=== PATIENT | male | born 1960 | race Native Hawaiian/Other Pacific Islander ===

== ENCOUNTER 2019-03-17 08:36 | Outpatient (CLI) | payer OTHER | END 2019-03-17 19:09 | disposition home or self-care (01) | LOC: MRI 08:36 | DX: M54.6 Pain in thoracic spine (principal) ==

== ENCOUNTER 2019-06-19 11:13 | Outpatient (CLI) | payer OTHER | END 2019-06-19 22:06 | disposition home or self-care (01) | LOC: MRI 11:13 | DX: M50.10 Cervical disc disorder with radiculopathy, unspecified cervical region (principal) ==

== ENCOUNTER 2019-08-25 10:15 | Day surgery (SDC) | payer OTHER ==
[~2019-08-25] VITALS: Ht 30.5 cm; Wt 0.5 kg
== END 2019-08-25 12:10 | disposition home or self-care (01) ==
LOC: OR 10:15
PROC: 3E0R33Z Introduction of Anti-inflammatory into Spinal Canal, Percutaneous Approach (ICD-10-PCS; principal; 2019-08-25)
PROC: B01BYZZ Fluoroscopy of Spinal Cord using Other Contrast (ICD-10-PCS; 2019-08-25)
PROC: 3E0U33Z Introduction of Anti-inflammatory into Joints, Percutaneous Approach (ICD-10-PCS; 2019-08-25)
DX: M50.123 Cervical disc disorder at C6-C7 level with radiculopathy (principal); M25.561 Pain in right knee
CPT/HCPCS: J1020; J2001

== ENCOUNTER 2020-06-07 08:14 | Day surgery (SDC) | payer OTHER ==
[~2020-06-07] VITALS: Ht 30.5 cm; Wt 0.5 kg
== END 2020-06-07 09:29 | disposition home or self-care (01) ==
LOC: OR 08:14
PROC: 3E0R3BZ Introduction of Anesthetic Agent into Spinal Canal, Percutaneous Approach (ICD-10-PCS; principal; 2020-06-07)
PROC: 3E0R33Z Introduction of Anti-inflammatory into Spinal Canal, Percutaneous Approach (ICD-10-PCS; 2020-06-07)
PROC: B01BYZZ Fluoroscopy of Spinal Cord using Other Contrast (ICD-10-PCS; 2020-06-07)
DX: M50.123 Cervical disc disorder at C6-C7 level with radiculopathy (principal)
CPT/HCPCS: J1020; J2001